=== PATIENT | male | born 1985 | race Caucasian/White ===

== ENCOUNTER 2020-04-07 06:24 | Emergency (ER) | payer OTHER ==
[~2020-04-07] VITALS: Ht 170.2 cm; Wt 90.0 kg
[2020-04-07] MEDS ORDERED: GLUCAGON,HUMAN RECOMBINANT 1 MG/ML VIAL. IV ONE (08:00)
[2020-04-07] MEDS ORDERED: METOCLOPRAMIDE HCL 10 MG/2 ML VIAL. IV ONE (08:00)
[2020-04-07] MEDS ORDERED: IV NORMAL SALINE 1000ML BAG 1,000 ML IV ONE (08:00)
--- NOTE | 2020-04-07 08:08 | PHYS DOC ---
Past Medical History Past Medical History: No Pertinent History Past Surgical History: No Surgical History Smoking Status: Never Smoker Alcohol Use: Occasionally General Adult EDM: Chief Complaint: DIFFICULTY SWALLOWING HPI: HPI: Patient is a 34-year-old male with a history of esophageal obstruction secondary to food bolus presents with what he describes as a hotdog lodged in his esophagus. He states he was eating a hot dog yesterday and when he swallowed it he felt like it got caught up in the middle of his chest. He denies any shortness of breath. He states he is unable to drink any liquids and unable to tolerate his own saliva. He states he has been spitting up saliva for the last several hours. [] Review of Systems: Review of Systems: Constitutional: Denies fever or chills. [] Eyes: Denies change in visual acuity. [] HENT: Denies nasal congestion or sore throat. [] Respiratory: Denies cough or shortness of breath. [] Cardiovascular: Denies chest pain or edema. [] GI: Per HPI [] : Denies dysuria. [] Musculoskeletal: Denies back pain or joint pain. [] Integument: Denies rash. [] Neurologic: Denies headache, focal weakness or sensory changes. [] Endocrine: Denies polyuria or polydipsia. [] Lymphatic: Denies swollen glands. [] Psychiatric: Denies depression or anxiety. [] Heart Score: Risk Factors: Risk Factors: DM, Current or recent (<one month) smoker, HTN, HLP, family history of CAD, obesity. Risk Scores: Score 0 - 3: 2.5% MACE over next 6 weeks - Discharge Home Score 4 - 6: 20.3% MACE over next 6 weeks - Admit for Clinical Observation Score 7 - 10: 72.7% MACE over next 6 weeks - Early Invasive Strategies Current Medications: Current Medications Medications (Trade) Dose Ordered Sig/Liane Start Time Stop Time Status Last Admin Dose Admin Glucagon (Glucagen) 1 mg 1X ONCE 04/07/20 08:00 04/07/20 08:01 UNV Metoclopramide HCl (Reglan Vial) 10 mg 1X ONCE 04/07/20 08:00 04/07/20 08:01 UNV Sodium Chloride 1,000 ml @ 1,000 mls/hr 1X ONCE 04/07/20 08:00 04/07/20 08:59 UNV Physical Exam: PE: Constitutional: Well developed, well nourished, appears acutely ill he is s pitting his saliva into a basin. [] HENT: Normocephalic, atraumatic, bilateral external ears normal, oropharynx moist, no oral exudates, nose normal. [] Eyes: PERRLA, EOMI, conjunctiva normal, no discharge. [] Neck: Normal range of motion, no tenderness, supple, no stridor. [] Cardiovascular:Heart rate regular rhythm, no murmur [] Lungs & Thorax: Bilateral breath sounds clear to auscultation [] Abdomen: Bowel sounds normal, soft, no tenderness, no masses, no pulsatile masses. [] Skin: Warm, dry, no erythema, no rash. [] Back: No tenderness, no CVA tenderness. [] Extremities: No tenderness, no cyanosis, no clubbing, ROM intact, no edema. [] Neurologic: Alert and oriented X 3, normal motor function, normal sensory function, no focal deficits noted. [] Psychologic: Anxious [] Current Patient Data: Vital Signs: Vital Signs Date Time Temp Pulse Resp B/P (MAP) Pulse Ox O2 Delivery O2 Flow Rate FiO2 04/07/20 06:40 98.2 113 18 146/96 (113) 95 Room Air 98.2 EKG: EKG: [] Radiology/Procedures: Radiology/Procedures: [] Course & Med Decision Making: Course & Med Decision Making Pertinent Labs and Imaging studies reviewed. (See chart for details) [ED course: Evaluation reveals a 34-year-old male with what sounds to be esophageal obstruction secondary to food bolus. He was given glucagon Reglan and IV fluids here in the department. Consulted gastroenterology and informed patient that he would likely have to go to the GI lab to have the food bolus passed into his stomach. Patient went to the GI lab and will be discharged after his procedure] Florence Disclaimer: Florence Disclaimer: This electronic medical record was generated, in whole or in part, using a voice recognition dictation system. Departure Departure Impression: Primary Impression: Esophageal obstruction due to food impaction Disposition: HOME, SELF-CARE Condition: IMPROVED Referrals: CHRISTIE INIGUEZ MD (PCP) Justicifation of Admission Dx: Justifications for Admission: Justification of Admission Dx: No CAMILLA LYONS DO Apr 07, 2020 08:08
--- NOTE | 2020-04-07 08:58 | PDOC2 ---
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 Piece of hot dog stuck in [facility] since last night at 10:00 - was hanging out and having some beers with friends. Food has gotten stuck in the past - probably occurs 5-6 times each year but has always passed (though once was stuck for 2 hours). Currently unable to tolerate secretions, feels very uncomfortable. Glucagon and Reglan ordered per Dr. Hill. Noted w/ hypertension and tachycardia. Denies reflux/heartburn, abd pain, diarrhea, constipation, hematochezia, melena, hematemesis, change in appetite, weight loss. No previous EGD or colonoscopy. No liver, pancreas, GB, or PUD history. No routine NSAIDs. PMH: PMH: denies FH: Family History: No pertinent hx (denies GI cancers) Social History: Smoke: No ALCOHOL: social Drugs: None ROS: GEN: Denies fevers, chills, sweats HEENT: Denies blurred vision, sore throat CV: Denies chest pain RESP: Denies shortness of air, cough GI: Per HPI : Denies hematuria, dysuria ENDO: Denies weight changes NEURO: Denies confusion, dizziness MSK: Denies weakness, joint pain/swelling SKIN: Denies jaundice, pruritus Vitals: Vitals: Vital Signs Date Time Temp Pulse Resp B/P (MAP) Pulse Ox O2 Delivery O2 Flow Rate FiO2 04/07/20 06:40 98.2 113 18 146/96 (113) 95 Room Air 98.2 Allergies: Coded Allergies: No Known Drug Allergies (Unverified , 04/07/20) Medications: please see EMR Imaging: Imaging: - PE: GEN: NAD HEENT: Atraumatic, PERRL LUNGS: CTAB HEART: mildly tachycardic ABD: NABS, S/ND/NT EXTREMITY: No edema SKIN: No rashes, no jaundice NEURO/PSYCH: A & O 3 A/P: A/P: Food bolus H/o intermittent dysphagia -- Check COVID, plan for EGD early this afternoon w/ Dr. Vasquez. Discussed likelihood of follow-up for repeat EGD/dilation, etc. YORDAN MCDONALD Apr 07, 2020 08:58
--- NOTE | 2020-04-07 12:52 | PDOC4 ---
PROCEDURE Procedure EGD food bolus obstruction anesthesia with propofol e- large food bolus in distal esophagus- pushed into stomach for removal distal benign esophageal stricture- passed Duran 56 fr for dilation G- limited view- a few erosions in antrum but some food in stomach D- normal Plan - soft diet\ pantoprazole repeat EGD with bx and dilation in 1-2 months YEHUDA DESAI MD Apr 07, 2020 12:52
[2020-04-07 13:09] VITALS: BP 121/55
== END 2020-04-07 11:37 | disposition home or self-care (01) ==
LOC: ER 06:24
DX: K22.2 Esophageal obstruction (principal); Z20.828 Contact with and (suspected) exposure to other viral communicable diseases
CPT/HCPCS: 43247; 43450; 87426; 96361; 96374; 96375; 99285; J1610; J2765; J7030; U0003

== ENCOUNTER → 2020-04-07 | Day surgery (SDC) | payer OTHER ==
[~2020-04-07] MED LIST: IV RINGERS,LACTATED 1000ML 1,000 ML IV ONE; LIDOCAINE 2% PF 5 ML VIAL. ONE; PROPOFOL 10 MG/ML (20ML) VIAL. IV ONE
== END | disposition home or self-care (01) ==
LOC: SURG 11:59
PROVIDERS: ATTEND Internal Medicine Gastroenterology
DX: R13.10 Dysphagia, unspecified (principal); Z53.8 Procedure and treatment not carried out for other reasons
CPT/HCPCS: J2704